=== PATIENT | male | born 1970 | race Caucasian/White ===

== ENCOUNTER 2020-02-01 14:18 | Observation (INO) | payer MEDICARE, OTHER ==
[2020-02-01] MEDS ORDERED: SODIUM CHLORIDE 0.9% 1,000 ML IV STA (14:52)
[2020-02-01 15:29] LABS: Basophils % (A) 1 %; Eosinophils # (A) 0.2 k/uL (0-0.7); Eosinophils % (A) 3 %; HCT 46.9 % (39.0-53.0); HGB 15.5 gm/dL (13.0-17.5); Lymphocytes # (A) 2.3 k/uL (1.0-4.8); Lymphocytes % (A) 41 %; MCH 34.4 pg (25.0-35.0); MCV 104.2 fL (80.0-100.0); Macrocytosis Slight; Mean Platelet Volume 7.5; Monocytes # (A) 0.5 k/uL (0-1.0); Monocytes % (A) 8 %; Neutrophils # (A) 2.5 k/uL (1.3-7.7); Neutrophils % (A) 43 %; Platelet Count 263 k/uL (150-450); RBC 4.51 m/uL (4.30-5.90); RDW 12.3 % (11.5-15.5); WBC 5.6 k/uL (3.8-10.6)
[2020-02-01 15:43] LABS: INR 0.9 (<1.2); Partial Thromboplastin Time 23.6 sec (22.0-30.0); Prothrombin Time 9.9 sec (9.0-12.0)
[2020-02-01 15:45] LABS: ALT 22 U/L (4-49); AST 30 U/L (17-59); African American GFR (CKD) >90 (>60 ml/min/1.73 sqM); Albumin 4.3 g/dL (3.5-5.0); Alkaline Phosphatase 72 U/L (38-126); Anion Gap 8 mmol/L; Blood Urea Nitrogen 16 mg/dL (9-20); Calcium 8.8 mg/dL (8.4-10.2); Carbon Dioxide 25 mmol/L (22-30); Chloride 106 mmol/L (98-107); Glucose 93 mg/dL (74-99); Non-African American GFR(CKD) >90 (>60 ml/min/1.73 sqM); Potassium 4.6 mmol/L (3.5-5.1); Sodium 139 mmol/L (137-145); Total Bilirubin 0.4 mg/dL (0.2-1.3); Total Protein 7.5 g/dL (6.3-8.2)
--- NOTE | 2020-02-01 16:10 | XR ---
EXAMINATION TYPE: XR chest 1V portable DATE OF EXAM: 02/01/2020 COMPARISON: NONE HISTORY: Weakness TECHNIQUE: Single frontal view of the chest is obtained. FINDINGS: Low lung volumes. There is central increased opacity bilaterally. No pleural effusion or pneumothorax seen bilaterally. The cardiac silhouette size is upper limits of normal. Overlying EKG leads. The osseous structures are intact. IMPRESSION: Low lung volumes with mild central alveolar edema. Correlate for fluid overload state or CHF exacerbation.
--- NOTE | 2020-02-01 16:38 | CT ---
EXAMINATION TYPE: CT brain wo con DATE OF EXAM: 02/01/2020 COMPARISON: None. HISTORY: Altered mental status and seizures. CT DLP: 1099.4 mGycm. Automated Exposure Control for Dose Reduction was Utilized. TECHNIQUE: CT scan of the head is performed without contrast. FINDINGS: There is right parietal craniotomy change with area O intense to CSF suspect resection cavi ty over the right parieto-occipital region axial image 34 contiguous with the right lateral ventricle which shows ex vacuo dilatation. There is CSF prominence over the superior cerebellar hemispheres bi laterally could reflect arachnoid cysts or cerebellar hypoplasia. No acute intracranial hemorrhage or midline shift. Basal ganglia calcifications axial image 25 noted. No hydrocephalus. Visualized sinus es are clear and the globes are intact bilaterally. IMPRESSION: No acute intracranial hemorrhage or midline shift is seen. Postsurgical changes noted. C orrelation with old outside CT or MRI would be beneficial to further assess.
[2020-02-01 17:16] LABS: Appearance,Urine Clear (Clear); Bilirubin,Urine Negative (Negative); Blood,Urine Negative (Negative); Color,Urine Light Yellow; Glucose,Urine (UA) Negative (Negative); Ketones,Urine Negative (Negative); Leukocyte Esterase,Urine Negative (Negative); Nitrite,Urine Negative (Negative); PH, Urine 6.5 (5.0-8.0); Protein,Urine Negative (Negative); Specific Gravity,Urine 1.006 (1.001-1.035); Urobilinogen,Urine <2.0 mg/dL (<2.0)
--- NOTE | 2020-02-01 17:27 | ED ---
Weakness HPI - General Chief complaint: Weakness Stated complaint: Weakness Time Seen by Provider: 02/01/20 14:38 Source: patient Mode of arrival: ambulatory Limitations: no limitations - History of Present Illness Initial comments: Patient is a 49-year-old male with history of a epilepsy presenting to the emergency department with a chief complaint of a seizure. Patient brought to the ED via EMS for a possible seizure. EMS discussed was contacted by his visiting nurse who said the patient was "not acting like himself". No further information was given. Patient states he does not have any other family members to contact. States he only has one friend which she attempted to contact, her name is Mar Richards. I was able to reach her after a 4 hour of admission. Mar states the patient had partial brain resection due to epilepsy about 10 years ago. States the patient has been seizure-free since the procedure but over the last 3-4 weeks he has developed increased seizures. States the patient has one or 2 seizures per day. States the patient typically wanders off during mid conversation or sometimes he would have a focal seizure in his right hand or foot. States the patient takes longer to answer questions although he is slow to response at baseline. States that he starting to forget things. Patient states he has not been sleeping well because the tenants in the living facility are slamming the doors. Patient has patient has no other complaints at this time. - Related Data Allergies Allergy/AdvReac Type Severity Reaction Status Date / Time divalproex sodium Allergy Unknown Verified 02/01/20 14:40 [From Depakote] lamotrigine [From Lamictal] Allergy Unknown Verified 02/01/20 14:40 rofecoxib [From Vioxx] Allergy Unknown Verified 02/01/20 14:40 Review of Systems ROS Statement: Those systems with pertinent positive or pertinent negative responses have been documented in the HPI. ROS Other: All systems not noted in ROS Statement are negative. Past Medical History Past Medical History: Seizure Disorder History of Any Multi-Drug Resistant Organisms: None Reported Past Surgical History: Joint Replacement Additional Past Surgical History / Comment(s): Brain sx Past Psychological History: No Psychological Hx Reported Smoking Status: Never smoker Past Alcohol Use History: None Reported Past Drug Use History: None Reported General Exam Limitations: no limitations General appearance: alert, in no apparent distress Head exam: Present: atraumatic, normocephalic, normal inspection Eye exam: Present: normal appearance Pupils: Present: normal accommodation ENT exam: Present: normal exam, normal oropharynx (Poor dentition), mucous membranes moist Neck exam: Present: normal inspection, full ROM Respiratory exam: Present: normal lung sounds bilaterally Cardiovascular Exam: Present: regular rate, normal rhythm, normal heart sounds Extremities exam: Present: normal inspection, full ROM Back exam: Present: normal inspection, full ROM Neurological exam: Present: alert, oriented X3, CN II-XII intact, normal gait Psychiatric exam: Present: normal affect, normal mood Skin exam: Present: warm, dry, intact, normal color Course Vital Signs 02/01/20 02/01/20 02/01/20 14:30 15:29 15:30 Temperature 98.3 F Pulse Rate 57 L 51 L 60 Respiratory 18 18 18 Rate Blood Pressure 131/99 125/79 133/86 O2 Sat by Pulse 99 99 99 Oximetry 02/01/20 02/01/20 02/01/20 16:29 16:30 17:30 Temperature Pulse Rate 57 L 57 L 65 Respiratory 18 21 18 Rate Blood Pressure 113/99 113/79 119/99 O2 Sat by Pulse 98 100 97 Oximetry 02/01/20 02/01/20 18:00 19:44 Temperature 98.1 F Pulse Rate 57 L 60 Respiratory 18 16 Rate Blood Pressure 126/88 124/70 O2 Sat by Pulse 100 98 Oximetry EKG Findings - EKG Comments: EKG Findings:: First degree AV block. Ventricular rate 53, OK of 212, QRS 92, QTC 388 Medical Decision Making - Medical Decision Making Patient is a 49-year-old male presenting to emergency Department with chief complaint of seizures. Patient rested ED via EMS. On evaluation patient is alert and oriented 3. Patient is answering questions appropriately. Slight delay in responses. Spoke with his friend, Mar Richards, who acted mostly as a historian. Patient has developed increased seizures over the last 4 weeks after being seizure-free for many years after partial brain resection. CT of the brain shows postsurgical changes but no acute processes. Laboratory work is unrema rkable. EKG shows a first-degree heart block. CBC CMP and UA are unremarkable. After concerns for possible status epilepticus. Patient lives at home alone. Patient will be admitted for observation. Case discussed with . Neurology in consult. Dr Christy admitting. - Lab Data Result diagrams: 02/01/20 15:05 02/01/20 15:05 Lab Results 02/01/20 02/01/20 02/01/20 Range/Units 15:05 15:05 15:05 WBC 5.6 (3.8-10.6) k/uL RBC 4.51 (4.30-5.90) m/uL Hgb 15.5 (13.0-17.5) gm/dL Hct 46.9 (39.0-53.0) % MCV 104.2 H (80.0-100.0) fL MCH 34.4 (25.0-35.0) pg MCHC 33.0 (31.0-37.0) g/dL RDW 12.3 (11.5-15.5) % Plt Count 263 (150-450) k/uL Neutrophils % 43 % Lymphocytes % 41 % Monocytes % 8 % Eosinophils % 3 % Basophils % 1 % Neutrophils # 2.5 (1.3-7.7) k/uL Lymphocytes # 2.3 (1.0-4.8) k/uL Monocytes # 0.5 (0-1.0) k/uL Eosinophils # 0.2 (0-0.7) k/uL Basophils # 0.0 (0-0.2) k/uL Macrocytosis Slight PT 9.9 (9.0-12.0) sec INR 0.9 (<1.2) APTT 23.6 (22.0-30.0) sec Sodium 139 (137-145) mmol/L Potassium 4.6 (3.5-5.1) mmol/L Chloride 106 (98-107) mmol/L Carbon Dioxide 25 (22-30) mmol/L Anion Gap 8 mmol/L BUN 16 (9-20) mg/dL Creatinine 0.94 (0.66-1.25) mg/dL Est GFR (CKD-EPI)AfAm >90 (>60 ml/min/1.73 sqM) Est GFR (CKD-EPI)NonAf >90 (>60 ml/min/1.73 sqM) Glucose 93 (74-99) mg/dL Calcium 8.8 (8.4-10.2) mg/dL Total Bilirubin 0.4 (0.2-1.3) mg/dL AST 30 (17-59) U/L ALT 22 (4-49) U/L Alkaline Phosphatase 72 (38-126) U/L Troponin I (0.000-0.034) ng/mL Total Protein 7.5 (6.3-8.2) g/dL Albumin 4.3 (3.5-5.0) g/dL Urine Color Urine Appearance (Clear) Urine pH (5.0-8.0) Ur Specific [place] (1.001-1.035) Urine Protein (Negative) Urine Glucose (UA) (Negative) Urine Ketones (Negative) Urine Blood (Negative) Urine Nitrite (Negative) Urine Bilirubin (Negative) Urine Urobilinogen (<2.0) mg/dL Ur Leukocyte Esterase (Negative) 02/01/20 02/01/20 Range/Units 15:05 17:00 WBC (3.8-10.6) k/uL RBC (4.30-5.90) m/uL Hgb (13.0-17.5) gm/dL Hct (39.0-53.0) % MCV (80.0-100.0) fL MCH (25.0-35.0) pg MCHC (31.0-37.0) g/dL RDW (11.5-15.5) % Plt Count (150-450) k/uL Neutrophils % % Lymphocytes % % Monocytes % % Eosinophils % % Basophils % % Neutrophils # (1.3-7.7) k/uL Lymphocytes # (1.0-4.8) k/uL Monocytes # (0-1.0) k/uL Eosinophils # (0-0.7) k/uL Basophils # (0-0.2) k/uL Macrocytosis PT (9.0-12.0) sec INR (<1.2) APTT (22.0-30.0) sec Sodium (137-145) mmol/L Potassium (3.5-5.1) mmol/L Chloride (98-107) mmol/L Carbon Dioxide (22-30) mmol/L Anion Gap mmol/L BUN (9-20) mg/dL Creatinine (0.66-1.25) mg/dL Est GFR (CKD-EPI)AfAm (>60 ml/min/1.73 sqM) Est GFR (CKD-EPI)NonAf (>60 ml/min/1.73 sqM) Glucose (74-99) mg/dL Calcium (8.4-10.2) mg/dL Total Bilirubin (0.2-1.3) mg/dL AST (17-59) U/L ALT (4-49) U/L Alkaline Phosphatase (38-126) U/L Troponin I <0.012 (0.000-0.034) ng/mL Total Protein (6.3-8.2) g/dL Albumin (3.5-5.0) g/dL Urine Color Light Yellow Urine Appearance Clear (Clear) Urine pH 6.5 (5.0-8.0) Ur Specific [place] 1.006 (1.001-1.035) Urine Protein Negative (Negative) Urine Glucose (UA) Negative (Negative) Urine Ketones Negative (Negative) Urine Blood Negative (Negative) Urine Nitrite Negative (Negative) Urine Bilirubin Negative (Negative) Urine Urobilinogen <2.0 (<2.0) mg/dL Ur Leukocyte Esterase Negative (Negative) Disposition Clinical Impression: Seizures Disposition: ADMITTED IP TO THIS HOSP Condition: Stable Additional Instructions: Patient will be admitted Is patient prescribed a controlled substance at d/c from ED?: No Referrals: Chaya Sweet MD [Primary Care Provider] - 1-2 days Time of Disposition: 20:18
[2020-02-01] MEDS ORDERED: NALOXONE 0.4 MG/ML 1 ML VIAL IV PRN (20:18)
[2020-02-01] MEDS ORDERED: MORPHINE SULFATE 4 MG/ML SYRINGE IV PRN (20:18)
[2020-02-01] MEDS ORDERED: LORazepam 2 MG/ML INJ IV PRN ×2 (20:18→22:37)
[2020-02-01] MEDS ORDERED: ONDANSETRON 4 MG/2 ML VIAL IVP PRN (20:18)
[2020-02-01] MEDS ORDERED: carBAMazepine 200 MG TAB PO STA (21:06)
[2020-02-01] MEDS ORDERED: PRIMIDONE 50 MG TAB PO STA (21:07)
[2020-02-01] MEDS ORDERED: ZONISAMIDE 100 MG CAP PO STA (21:20)
[2020-02-01] MEDS ORDERED: SODIUM CHLORIDE 0.9% 1,000 ML IV SCH (23:15)
[2020-02-02] MEDS ORDERED: ZONISAMIDE 100 MG CAP PO SCH (09:00)
--- NOTE | 2020-02-02 15:28 | P.HPIM ---
History of Present Illness 49-year-old male was sent in for evaluation for epilepsy. Nobody witnessed to his seizure and patient is not sure whether he had a seizure or not. Patient the was acting not like himself because of which are alive homecare nurse th ought he may have had a seizure and patient was postictal. Patient denied any R never had any RR never lost her bowel or bladder incontinence in the past and he did not have any shortness symptoms now either. Patient denied any tongue biting. Patient on multiple antiseizure medications as a long history of seizures. Patient was a valid by me followed by neurology and neurology is recommending increasing primidone 200 mg at bedtime and patient will be discharged valproic levels are less than 10 levels of other his rest of his other medications including Lamictal are pending Review of Systems REVIEW OF SYSTEMS: CONSTITUTIONAL: No fever, no malaise, no fatigue. HEENT: No recent visual problems or hearing problems. Denied any sore throat. CARDIOVASCULAR: No chest pain, orthopnea, PND, no palpitations, no syncope. PULMONARY: No shortness of breath, no cough, no hemoptysis. GASTROINTESTINAL: No diarrhea, no nausea, no vomiting, no abdominal pain. NEUROLOGICAL: As mentioned in HPI no focal weakness no numbness tingling HEMATOLOGICAL: Denies any bleeding or petechiae. GENITOURINARY: Denies any burning micturition, frequency, or urgency. MUSCULOSKELETAL/RHEUMATOLOGICAL: Denies any joint pain, swelling, or any muscle pain. ENDOCRINE: Denies any polyuria or polydipsia. The rest of the 14-point review of systems is negative. Past Medical History Past Medical History: Pneumonia, Seizure Disorder Additional Past Medical History / Comment(s): migraines History of Any Multi-Drug Resistant Organisms: None Reported Past Surgical History: Orthopedic Surgery Additional Past Surgical History / Comment(s): meniscus repair, 3/4 of his occipital lobe removed to stop seizures. Past Anesthesia/Blood Transfusion Reactions: No Reported Reaction Past Psychological History: No Psychological Hx Reported Smoking Status: Never smoker Past Alcohol Use History: None Reported Past Drug Use History: None Reported Medications and Allergies Home Medications Medication Instructions Recorded Confirmed Type Erenumab-Aooe [Aimovig 70 mg SQ QMONTH 02/01/20 02/01/20 History Autoinjector] Primidone [Mysoline] 50 mg PO HS 02/01/20 02/01/20 History Propranolol [Inderal] 40 mg PO BID 02/01/20 02/01/20 History Rizatriptan Benzoate [Rizatriptan] 10 mg PO DAILY PRN 02/01/20 02/01/20 History Zonisamide [Zonegran] 300 mg PO BID 02/01/20 02/01/20 History carBAMazepine [TEGretol] 400 mg PO QAM 02/01/20 02/01/20 History carBAMazepine [TEGretol] 600 mg PO HS 02/01/20 02/01/20 History Allergies Allergy/AdvReac Type Severity Reaction Status Date / Time carbamazepine Allergy SEIZURE Verified 02/01/20 20:55 divalproex sodium Allergy Unknown Verified 02/01/20 20:50 [From Depakote] lamotrigine [From Lamictal] Allergy Unknown Verified 02/01/20 20:50 rofecoxib [From Vioxx] Allergy Unknown Verified 02/01/20 20:50 Physical Exam Vitals: Vital Signs Temp Pulse Pulse Resp BP BP Pulse Ox 02/02/20 07:59 97.7 F 79 18 111/70 100 02/02/20 04:22 18 02/02/20 02:30 98.0 F 54 L 18 90/48 98 02/01/20 23:46 16 02/01/20 22:11 98.9 F 65 16 149/86 98 02/01/20 19:44 98.1 F 60 16 124/70 98 02/01/20 18:00 57 L 18 126/88 100 02/01/20 17:30 65 18 119/99 97 02/01/20 16:30 57 L 21 113/79 100 02/01/20 16:29 57 L 18 113/99 98 02/01/20 15:30 60 18 133/86 99 02/01/20 15:29 51 L 18 125/79 99 Intake and Output 02/02/20 02/02/20 02/02/20 06:59 14:59 22:59 Intake Total 592 Balance 592 Intake: Oral 592 Other: Voiding Method Toilet PHYSICAL EXAMINATION: GENERAL: The patient is alert and oriented x3, not in any acute distress. Well developed, well nourished. HEENT: Pupils are round and equally reacting to light. EOMI. No scleral icterus. No conjunctival pallor. Normocephalic, atraumatic. No pharyngeal erythema. No thyromegaly. CARDIOVASCULAR: S1 and S2 present. No murmurs, rubs, or gallops. PULMONARY: Chest is clear to auscultation, no wheezing or crackles. ABDOMEN: Soft, nontender, nondistended, normoactive bowel sounds. No palpable organomegaly. MUSCULOSKELETAL: No joint swelling or deformity. EXTREMITIES: No cyanosis, clubbing, or pedal edema. NEUROLOGICAL: Gross neurological examination did not reveal any focal deficits. SKIN: No rashes. Results CBC & Chem 7: 02/01/20 15:05 02/01/20 15:05 Labs: Abnormal Lab Results - Last 24 Hours (Table) 02/01/20 Range/Units 15:05 MCV 104.2 H (80.0-100.0) fL Thrombosis Risk Factor Assmnt - Choose All That Apply Each Factor Represents 1 point: Age 41-60 years, Obesity (BMI >25) Thrombosis Risk Factor Assessment Total Risk Factor Score: 2 Thrombosis Risk Factor Assessment Level: Low Risk Assessment and Plan Plan: -Seizure disorder unsure whether patient had a seizure episode yesterday after evaluation by neurology decided to increase his primidone 200 mg and patient will be discharged today -History of migraines in the past -Other psychiatric issues: Patient will resume his home medications.
--- NOTE | 2020-02-02 15:28 | P.DS ---
Providers Date of admission: 02/01/20 19:46 Attending physician: Zain Son Consults: 02/01/20 20:18 Consult Physician Stat Consulting Provider: Gurdeep Zimmer Consult Reason/Comments: Concern for status epilepticus, seizures Do you want consulting provider notified?: Yes Primary care physician: Chaya Sweet [facility] Course: Please refer to my HPI for further details Patient Condition at Discharge: Stable Plan - Discharge Summary Discharge Rx Participant: No New Discharge Prescriptions: Continue Erenumab-Aooe [Aimovig Autoinjector] 70 mg SQ QMONTH Zonisamide [Zonegran] 300 mg PO BID Propranolol [Inderal] 40 mg PO BID carBAMazepine [TEGretol] 600 mg PO HS carBAMazepine [TEGretol] 400 mg PO QAM Rizatriptan Benzoate [Rizatriptan] 10 mg PO DAILY PRN PRN Reason: ONSET OF HEADACHE Changed Primidone [Mysoline] 100 mg PO HS #0 Discharge Medication List Erenumab-Aooe [Aimovig Autoinjector] 70 mg SQ QMONTH 02/01/20 [History] Propranolol [Inderal] 40 mg PO BID 02/01/20 [History] Rizatriptan Benzoate [Rizatriptan] 10 mg PO DAILY PRN 02/01/20 [History] Zonisamide [Zonegran] 300 mg PO BID 02/01/20 [History] carBAMazepine [TEGretol] 400 mg PO QAM 02/01/20 [History] carBAMazepine [TEGretol] 600 mg PO HS 02/01/20 [History] Primidone [Mysoline] 100 mg PO HS #0 02/02/20 [Rx] Follow up Appointment(s)/Referral(s): Chaya Sweet MD [Primary Care Provider] - 02/08/20 2:30 pm Activity/Diet/Wound Care/Special Instructions: Patient will be admitted Discharge Disposition: HOME SELF-CARE
--- NOTE | 2020-02-02 16:12 | P.CNNES ---
History of Present Illness Consult date: 02/02/20 Requesting physician: Audie Baum Reason for Consult: Concern for status epilepticus, seizures History of Present Illness: Patient is a 49-year-old male with history of epilepsy, currently taking zonisamide 300 mg twice a day, Tegretol 400 mg every morning and 600 mg at at bedtime, and primidone 50 g at bedtime, came to the hospital with chief complaint of seizure. The visiting nurse contacted the EMS, the patient was "not acting like himself". Patient has history of "partial brain resection" due to epilepsy about 10 years ago. According to the ED records, patient has been seizure-free since the procedure but over the last 3-4 weeks, he has developed increased seizures. He has been having 1-2 seizures per day. Patient typically wanders off during mid conversation or sometimes he would have focal seizure in his right hand or foot. Patient takes longer to answer questions although he is slow to respond at baseline. When I spoke to the patient, he states that he has history of epilepsy since he was age 5. He had undergone partial right occipital lobe resection in May 2010. Patient follows up with Dr. Tootie Clements at [facility]. Patient states that since his brain surgery, he has been having sporadic seizure, not as many. However lately the seizures have been getting worse. Patient has an appointment with Dr. Clements on 04/29/2020. Patient had computed tomography scan of head, which revealed no acute process. Postsurgical changes involving right parietal craniotomy with ex vacuo dilation of the lateral ventricle. There is CSF prominence over anterior cerebellar luís spheres bilaterally could reflect arachnoid cyst or cerebellar hypoplasia. Basal ganglia calcifications. Patient states that he is tried all medications and has failed. He states that he has tried Vimpat, Lamictal, Depakote, Topamax, Keppra, Onfi. Review of Systems Patient denies headache, diplopia, numbness tingling focal weakness. Denies any process or thought dysphagia. Denies any chest pain shortness of breath wheezing cough. Denies abdominal pain nausea vomiting diarrhea. Past Medical History Past Medical History: Pneumonia, Seizure Disorder Additional Past Medical History / Comment(s): migraines History of Any Multi-Drug Resistant Organisms: None Reported Past Surgical History: Orthopedic Surgery Additional Past Surgical History / Comment(s): meniscus repair, 3/4 of his occipital lobe removed to stop seizures. Past Anesthesia/Blood Transfusion Reactions: No Reported Reaction Past Psychological History: No Psychological Hx Reported Smoking Status: Never smoker Past Alcohol Use History: None Reported Past Drug Use History: None Reported Medications and Allergies Home Medications Medication Instructions Recorded Confirmed Type Erenumab-Aooe [Aimovig 70 mg SQ QMONTH 02/01/20 02/01/20 History Autoinjector] Propranolol [Inderal] 40 mg PO BID 02/01/20 02/01/20 History Rizatriptan Benzoate [Rizatriptan] 10 mg PO DAILY PRN 02/01/20 02/01/20 History Zonisamide [Zonegran] 300 mg PO BID 02/01/20 02/01/20 History carBAMazepine [TEGretol] 400 mg PO QAM 02/01/20 02/01/20 History carBAMazepine [TEGretol] 600 mg PO HS 02/01/20 02/01/20 History Primidone [Mysoline] 100 mg PO HS #0 02/02/20 02/01/20 Rx Allergies Allergy/AdvReac Type Severity Reaction Status Date / Time carbamazepine Allergy SEIZURE Verified 02/01/20 20:55 divalproex sodium Allergy Unknown Verified 02/01/20 20:50 [From Depakote] lamotrigine [From Lamictal] Allergy Unknown Verified 02/01/20 20:50 rofecoxib [From Vioxx] Allergy Unknown Verified 02/01/20 20:50 Physical Examination - Vital Signs Vital Signs: Vital Signs Temp Pulse Pulse Resp BP BP Pulse Ox 02/02/20 07:59 97.7 F 79 18 111/70 100 02/02/20 04:22 18 02/02/20 02:30 98.0 F 54 L 18 90/48 98 02/01/20 23:46 16 02/01/20 22:11 98.9 F 65 16 149/86 98 02/01/20 19:44 98.1 F 60 16 124/70 98 02/01/20 18:00 57 L 18 126/88 100 02/01/20 17:30 65 18 119/99 97 02/01/20 16:30 57 L 21 113/79 100 02/01/20 16:29 57 L 18 113/99 98 02/01/20 15:30 60 18 133/86 99 02/01/20 15:29 51 L 18 125/79 99 02/01/20 14:30 98.3 F 57 L 18 131/99 99 Intake and Output 02/01/20 02/02/20 02/02/20 22:59 06:59 14:59 Intake Total 296 Balance 296 Intake: Oral 296 Other: Voiding Method Toilet Toilet # Voids 1 Weight 86.183 kg On examination patient is a middle aged male, in no distress. Patient is appears older than his stated age. He is alert and awake fully oriented to time place and person. Speech and language functions are normal. He has slightly nasal tone to his voice. On cranial nerve examination pupils are round and reactive to light, visual szymanski are full, he has mild nystagmus with end gaze bilaterally, extraocular muscles are intact. Face is symmetric, tongue protrudes the midline. Palatal elevation sensation normal. On muscle strength testing there is no pronator drift and the strength is normal in arms and legs distally and proximally. Reflexes are 1+ and plantars downgoing. Sensory touch is equal. No ataxia for [id number] testing. Tone and bulk of muscles normal. Results - Laboratory Findings CBC and BMP: 02/01/20 15:05 02/01/20 15:05 Abnormal Lab Findings: Abnormal Labs 02/01/20 15:05 MCV 104.2 H Assessment and Plan Assessment: * Long-standing history of medically intractable localization-related epilepsy, with history of epilepsy surgery in May 2010 at [facility], with improved seizure frequency, came with breakthrough seizures. Plan: * I discussed with patient about his seizure medications in detail. Patient states he is fully compliant with his seizure medication, does not miss a dose. He states "I have tried them all". At this point, we will increase his dose of primidone to 100 mg at bedtime. Patient will continue same dose of zonisamide 300 mg twice a day. * Patient's Tegretol level is 13.0 (4-12). He currently takes Tegretol 200 mg tablet, 2 tablets in the morning and 3 tablets at night (400 mg a.m, 600 mg p.m). May cut back to 2 tablets twice a day, as the levels are supratherapeutic. * Patient was recommended to call his neurologist at [facility] and make an appointment earlier, so that his seizure medications could be adjusted. * Otherwise he is clear for discharge. No need to check EEG, as it will not change the management. Patient is not in status epilepticus.
[2020-02-02] MEDS ORDERED: PROPRANOLOL 40 MG TAB PO SCH (17:30)
[2020-02-02 17:49] VITALS: BP 115/73; PULSE 57; RESP 16; TEMP 98.1
[2020-02-02] MEDS ORDERED: PRIMIDONE 50 MG TAB PO SCH (21:00)
== END 2020-02-02 18:32 | disposition home or self-care (01) ==
LOC: EC 14:18 → 4SSUR 19:46
PROVIDERS: ADMIT Internal Medicine; ATTEND Internal Medicine
DX: G40.909 Epilepsy, unspecified, not intractable, without status epilepticus (principal); G43.909 Migraine, unspecified, not intractable, without status migrainosus; Z87.01 Personal history of pneumonia (recurrent); Z79.899 Other long term (current) drug therapy; Z98.890 Other specified postprocedural states; I44.0 Atrioventricular block, first degree; Z96.60 Presence of unspecified orthopedic joint implant
CPT/HCPCS: 96360; 96361; 99285; 36415; 93005; 80156; 80164; 80053; 80203; 84484; 85025; 85610; 85730; 81003; 71045; 70450; G0378 ×2

== ENCOUNTER → 2021-07-25 | Outpatient (CLI) | payer MEDICARE, OTHER ==
--- NOTE | 2021-07-25 15:49 | US ---
EXAMINATION TYPE: US venous doppler duplex LE RT DATE OF EXAM: 07/25/2021 2:52 PM COMPARISON: NONE CLINICAL HISTORY: I82.409 Acute embolism and thrombosis. Patient feels pain in calf. No hx of DVT. Pa tient does not take blood thinners. Hx partial right knee replacement. SIDE PERFORMED: Right TECHNIQUE: The lower extremity deep venous system is examined utilizing real time linear array sonog [place] with graded compression, doppler sonography and color-flow sonography. VESSELS IMAGED: Common Femoral Vein Deep Femoral Vein Greater Saphenous Vein * Femoral Vein Popliteal Vein Small Saphenous Vein * Proximal Calf Veins (* superficial vessels) Right Leg: No evidence of DVT in veins imaged at this time. IMPRESSION: 1. Right lower extremity ultrasound negative for deep venous thrombosis
== END | disposition home or self-care (01) ==
LOC: RADUSWWP 14:49
PROVIDERS: ATTEND Orthopaedic Surgery
DX: M79.661 Pain in right lower leg (principal); Z96.651 Presence of right artificial knee joint